=== PATIENT | male | born 1950 | race Two or more races ===

== ENCOUNTER 2025-02-28 19:27 | Inpatient (IN) | payer MEDICARE, OTHER ==
[~2025-02-28] VITALS: Ht 175.3 cm; Wt 95.7 kg
[2025-02-28] MEDS: IV NS 0.9% 1,000 ML BAG IV ONE (19:59)
[2025-02-28] MEDS ORDERED: PIPERACI/TAZO 3.375GM/D5W 50ML PB IV ONE (20:01)
[2025-02-28] MEDS ORDERED: ACETAMINOPHEN 650 MG/SUPP.RECT RC ONE (20:02)
[2025-02-28] MEDS: PIPERACILLIN /TAZOBACTAM 3.375 G in IV D5W 50 ML IV ONE (20:17)
[2025-02-28] MEDS: ACETAMINOPHEN 650 MG/SUPP.RECT RC ONE (20:17)
[2025-02-28 20:33] LABS: PLATELET COUNT (AUTO) 202 K/uL (150-450); RED BLOOD CELL COUNT(AUTO) 3.10 MIL/uL (4.5-6.0); RED CELL DISTRIBUTION WIDTH 17.1 % (11.5-15.0); WHITE BLOOD COUNT (AUTO) 8.2 K/uL (4.3-11.0)
[2025-02-28 20:41] LABS: ACETONE, SERUM NEGATIVE (NEGATIVE)
[2025-02-28 20:49] LABS: APPEARANCE,URINE CLOUDY (CLEAR); BLOOD, URINE 3+ Ery/uL (NEGATIVE); LEUKOCYTE ESTERASE ,URINE 2+ (NEGATIVE); NITRITE, URINE NEGATIVE (NEGATIVE); UGLUCOSE 3+ mg/dL (NEGATIVE)
[2025-02-28 20:50] LABS: INR 1.14 (0.91-1.10)
[2025-02-28 20:59] LABS: LACTIC ACID 1.9 mmol/L (0.4-2.0)
[2025-02-28 21:02] LABS: NT-PRO BNP 2512 pg/mL (0-125)
[2025-02-28 21:25] LABS: ADD URINE CULTURE YES; SQUAMOUS EPITHELIAL CELL,UR 0-2 /HPF (None Seen)
[2025-02-28 21:41] LABS: CALCIUM, SERUM 9.6 mg/dL (8.5-10.1); SODIUM SERUM 138 mmol/L (136-145)
[2025-02-28 21:42] LABS: CREATININE 7.1 mg/dL (0.6-1.3); UREA NITROGEN, BLOOD 153 mg/dL (7-18)
[2025-02-28 21:46] LABS: ASPARTATE AMINOTRANSFERASE 6 U/L (15-37); TOTAL PROTEIN, SERUM 7.0 g/dL (6.4-8.2)
[2025-02-28] MEDS ORDERED: INSULIN REGULAR, HUMAN 100 UNIT/ML 10 ML VIAL ONE (21:55)
[2025-02-28] MEDS: INSULIN REGULAR, HUMAN 100 UNITS in IV NS 0.9% 100 ML IV PRN (22:05)
[2025-02-28 22:10] LABS: ABG BASE EXCESS -17.6 mmol/L (-2.0-3.0); ABG OXYGEN SATURATION 96.1 % (94.0-98.0); ABG PCO2 18.9 mmHg (35.0-48.0); ABG PH 7.239 (7.350-7.450); ABG PO2 101.2 mmHg (83.0-108.0); ABG TOTAL HEMOGLOBIN 10.3 G/dL (13.5-17.5); FRACTIONATED INSPIRED OXYGEN 21.0 %
[2025-02-28] MEDS ORDERED: MAGNESIUM HYDROXIDE 30 ML UDC PO PRN (22:30)
[2025-02-28] MEDS ORDERED: DOSING PER PHARMACY-ZOSYN IV 1 EA EA XX PRN (22:30)
[2025-02-28] MEDS ORDERED: MAG HYDROX/AL HYDROX/SIMETH 30 ML UDC PO PRN (22:30)
[2025-02-28] MEDS ORDERED: ONDANSETRON HCL/PF 4 MG/2 ML VIAL IVP PRN (22:30)
[2025-02-28] MEDS ORDERED: DOCU100T2 PO (22:41)
[2025-02-28] MEDS ORDERED: NA P133E RC (22:41)
[2025-02-28] MEDS ORDERED: CHOL100040 PO (22:41)
[2025-02-28] MEDS ORDERED: EPOE4000 SQ (22:41)
[2025-02-28] MEDS ORDERED: ACET-2605 PO (22:41)
[2025-02-28] MEDS ORDERED: FERR325T24 PO (22:41)
[2025-02-28] MEDS ORDERED: MAGN400O21 PO (22:41)
[2025-02-28] MEDS ORDERED: SODI650T PO (22:41)
[2025-02-28] MEDS ORDERED: OFLO5DRO5 LEFT EAR (22:41)
[2025-02-28] MEDS ORDERED: CRAN200C PO (22:41)
[2025-02-28] MEDS ORDERED: PANT40TA49 PO (22:41)
[2025-02-28 22:53] LABS: BAND % (MANUAL) 2 % (0.0-5.0); LYMPHOCYTES % (MANUAL) 1 % (16-48); MONOCYTES % (MANUAL) 2 % (0-11.0); NEUTROPHILS % (MANUAL) 95 (42-76); PLATELET ESTIMATE ADEQUATE
[2025-02-28] MEDS ORDERED: INSULIN REGULAR, HUMAN 100 UNIT in IV NS 0.9% 99 ML IV PRN (23:00)
[2025-02-28] MEDS ORDERED: PANTOPRAZOLE 40 MG VIAL ONE (23:29)
[2025-02-28] MEDS: PANTOPRAZOLE 40 MG VIAL IV SCH (23:29)
[2025-03-01] VITALS (24 sets, daily range): BP systolic 77–164; BP diastolic 44–126; TEMP 98.4–99.5; O2SAT 96–99
[2025-03-01] MEDS: INSULIN REGULAR, HUMAN 100 UNIT in IV NS 0.9% 99 ML IV PRN (01:20)
[2025-03-01] MEDS: IV NS 0.9% 1,000 ML IV PRN (01:20)
[2025-03-01] MEDS: BLOOD SUGAR DIAGNOSTIC 1 EACH STRIP IN SCH (01:27)
[2025-03-01 01:42] LABS: CALCIUM, SERUM 10.1 mg/dL (8.5-10.1); CREATININE 7.4 mg/dL (0.6-1.3); SODIUM SERUM 140 mmol/L (136-145)
[2025-03-01 01:58] LABS: UREA NITROGEN, BLOOD > 150 mg/dL (7-18)
[2025-03-01 05:16] LABS: PLATELET COUNT (AUTO) 201 K/uL (150-450); RED BLOOD CELL COUNT(AUTO) 3.12 MIL/uL (4.5-6.0); RED CELL DISTRIBUTION WIDTH 17.0 % (11.5-15.0); WHITE BLOOD COUNT (AUTO) 9.6 K/uL (4.3-11.0)
[2025-03-01 05:31] LABS: CALCIUM, SERUM 10.3 mg/dL (8.5-10.1); CREATININE 7.4 mg/dL (0.6-1.3); SODIUM SERUM 144 mmol/L (136-145)
[2025-03-01 05:34] LABS: LDL 27 mg/dL (0-99)
[2025-03-01 06:00] LABS: PHOSPHORUS 8.2 mg/dL (2.5-4.9); UREA NITROGEN, BLOOD > 150 mg/dL (7-18)
[2025-03-01] MEDS: PIPERACILLIN /TAZOBACTAM 2.25 G in IV D5W 50 ML IV SCH (07:40)
[2025-03-01] MEDS ORDERED: ACET325T53 PO (07:40)
[2025-03-01] MEDS ORDERED: CHOL100043 PO (07:40)
[2025-03-01 09:11] LABS: CALCIUM, SERUM 10.3 mg/dL (8.5-10.1); CREATININE 7.4 mg/dL (0.6-1.3); SODIUM SERUM 145.0 mmol/L (136-145)
[2025-03-01 09:32] LABS: UREA NITROGEN, BLOOD 162.0 mg/dL (7-18)
[2025-03-01] MEDS ORDERED: NA PHOS,M-B/NA PHOS,DI-BA 1 EA ENEMA RC PRN (10:30)
[2025-03-01] MEDS: IV D5/0.45 NACL 1,000 ML IV ONE (12:07)
[2025-03-01 13:29] LABS: CALCIUM, SERUM 10.1 mg/dL (8.5-10.1); SODIUM SERUM 143 mmol/L (136-145)
[2025-03-01 14:03] LABS: CREATININE 7.5 mg/dL (0.6-1.3)
[2025-03-01 14:06] LABS: UREA NITROGEN, BLOOD 135 mg/dL (7-18)
[2025-03-01] MEDS: OFLOXACIN OTIC SOLN 5 ML BOTTLE LEFT EAR SCH (17:13)
[2025-03-01 17:49] LABS: CALCIUM, SERUM 10.6 mg/dL (8.5-10.1); SODIUM SERUM 147 mmol/L (136-145)
[2025-03-01 17:52] LABS: CREATININE 7.8 mg/dL (0.6-1.3); UREA NITROGEN, BLOOD 163 mg/dL (7-18)
[2025-03-01] MEDS: IV LR 1000 ML 1,000 ML IV ONE (18:27)
[2025-03-01] MEDS: IV LR 1000 ML 1,000 ML IV SCH (19:33)
[2025-03-01 21:56] LABS: CALCIUM, SERUM 9.0 mg/dL (8.5-10.1); CREATININE 3.4 mg/dL (0.6-1.3); SODIUM SERUM 145.0 mmol/L (136-145); UREA NITROGEN, BLOOD 67.0 mg/dL (7-18)
[2025-03-01] MEDS ORDERED: DOSING PER PHARMACY-VANCOMYCIN IV XX PRN (23:00)
[2025-03-01] MEDS: VANCOMYCIN 1 GM /D5W 250 ML PB IV ONE (23:33)
[2025-03-01] MEDS: VANCOMYCIN 1 GM in IV D5W 250ml IV ONE (23:41)
[2025-03-02] VITALS (39 sets, daily range): BP systolic 75–131; BP diastolic 44–86; TEMP 97.9–98.1; O2SAT 92–99
[2025-03-02] MEDS ORDERED: CEFEPIME 1 GM VIAL ONE (00:09)
[2025-03-02] MEDS: CEFEPIME 1 GM in IV D5W 50 ML IV SCH ×2 (00:22→23:02)
[2025-03-02 04:47] LABS: PLATELET COUNT (AUTO) 133 K/uL (150-450); RED BLOOD CELL COUNT(AUTO) 2.51 MIL/uL (4.5-6.0); RED CELL DISTRIBUTION WIDTH 16.6 % (11.5-15.0); WHITE BLOOD COUNT (AUTO) 6.1 K/uL (4.3-11.0)
[2025-03-02 05:02] LABS: ASPARTATE AMINOTRANSFERASE 18.0 U/L (15-37); CALCIUM, SERUM 9.2 mg/dL (8.5-10.1); CREATININE 4.7 mg/dL (0.6-1.3); PHOSPHORUS 6.1 mg/dL (2.5-4.9); SODIUM SERUM 144.0 mmol/L (136-145); TOTAL PROTEIN, SERUM 5.9 g/dL (6.4-8.2)
[2025-03-02 05:13] LABS: CREATINE KINASE, TOTAL 332.0 U/L (39-308)
[2025-03-02 05:17] LABS: UREA NITROGEN, BLOOD 87.0 mg/dL (7-18)
[2025-03-02 07:26] LABS: CALCIUM, SERUM 9.0 mg/dL (8.5-10.1); SODIUM SERUM 143.0 mmol/L (136-145)
[2025-03-02 07:41] LABS: CREATININE 4.7 mg/dL (0.6-1.3)
[2025-03-02 07:46] LABS: UREA NITROGEN, BLOOD 89.0 mg/dL (7-18)
[2025-03-02 08:07] LABS: COMPLEMENT C3, SERUM 134 mg/dL (82-167); COMPLEMENT C4, SERUM 31 mg/dL (12-38)
[2025-03-02] MEDS: IV LR 1000 ML 1,000 ML IV PRN (08:27)
[2025-03-02] MEDS: POTASSIUM CL. PREMIX PERIPHER. 50 ML IV SCH (12:26)
[2025-03-02] MEDS ORDERED: DEXTROSE 50%-WATER 50 ML DISP.SYRIN IV PRN (12:30)
[2025-03-02] MEDS: BLOOD SUGAR DIAGNOSTIC 1 EACH STRIP IN SCH (13:15)
[2025-03-02] MEDS: INSULIN REGULAR, HUMAN 100 UNIT/ML 3 ML VIAL SQ PRN (13:18)
[2025-03-02] MEDS: ALBUMIN 25% 25 GM in PREMIX 1 EA IV PRN (15:50)
[2025-03-02] MEDS ORDERED: VANCOMYCIN 1 GM /D5W 250 ML PB IV ONE (20:29)
[2025-03-02] MEDS: VANCOMYCIN POST DIALYSIS 500MG IV PRN (20:33)
[2025-03-03] VITALS (25 sets, daily range): BP systolic 91–145; BP diastolic 43–69; TEMP 97.3–101.8; O2SAT 93–98
[2025-03-03 04:56] LABS: CALCIUM, SERUM 8.9 mg/dL (8.5-10.1); CREATININE 4.2 mg/dL (0.6-1.3); SODIUM SERUM 140.0 mmol/L (136-145); UREA NITROGEN, BLOOD 75.0 mg/dL (7-18)
[2025-03-03 05:02] LABS: PHOSPHORUS 4.8 mg/dL (2.5-4.9)
[2025-03-03] MEDS: ACETAMINOPHEN 325 MG TABLET PO PRN (05:09)
[2025-03-03 07:16] LABS: PLATELET COUNT (AUTO) 93 K/uL (150-450); RED BLOOD CELL COUNT(AUTO) 2.08 MIL/uL (4.5-6.0); RED CELL DISTRIBUTION WIDTH 16.5 % (11.5-15.0); WHITE BLOOD COUNT (AUTO) 5.3 K/uL (4.3-11.0)
[2025-03-03 07:40] LABS: EOSINOPHILS % (MANUAL) 1 % (0-4); LYMPHOCYTES % (MANUAL) 6 % (16-48); MONOCYTES % (MANUAL) 1 % (0-11.0); NEUTROPHILS % (MANUAL) 92 (42-76); PLATELET ESTIMATE DECREASED
[2025-03-03] MEDS: THERAHONEY GEL 1.5 OZ TUBE TP SCH (08:59)
[2025-03-03 09:09] LABS: *ANA ANTI-CENTROMERE B AB <0.2 AI (0.0-0.9); *ANA ANTI-DNA(DS) AB, QN <1 IU/mL (0-9); *ANA ANTI-JO-1 <0.2 AI (0.0-0.9); *ANA ANTICHROMATIN ANTIBODY <0.2 AI (0.0-0.9); *ANA RNP ANTIBODIES <0.2 AI (0.0-0.9); *ANA SJOGREN'S ANTI-SS-A <0.2 AI (0.0-0.9); *ANA SJOGREN'S ANTI-SS-B <0.2 AI (0.0-0.9); *ANAANTI-SCLERODERMA-70 AB <0.2 AI (0.0-0.9); *ANASMITH AB <0.2 AI (0.0-0.9)
[2025-03-03] MEDS: INSULIN GLARGINE, 100 UNIT/ML CARTRIDGE SQ SCH (14:14)
[2025-03-03] MEDS: ALTEPLASE CATHFLO 2 MG/VIAL XX ONE (16:34)
[2025-03-04] VITALS (7 sets, daily range): BP systolic 117–141; BP diastolic 44–82; TEMP 97.5–98.8; O2SAT 95–100
[2025-03-04 03:11] LABS: HEPATITIS B SURFACE AB (QUAL) Non Reactive (.)
[2025-03-04 06:10] LABS: PTH, INTACT 198 pg/mL (15-65)
[2025-03-04 06:15] LABS: PLATELET COUNT (AUTO) 90 K/uL (150-450); RED BLOOD CELL COUNT(AUTO) 2.53 MIL/uL (4.5-6.0); RED CELL DISTRIBUTION WIDTH 16.0 % (11.5-15.0); WHITE BLOOD COUNT (AUTO) 6.3 K/uL (4.3-11.0)
[2025-03-04 07:12] LABS: ASPARTATE AMINOTRANSFERASE 23.0 U/L (15-37); CALCIUM, SERUM 8.9 mg/dL (8.5-10.1); CREATININE 3.3 mg/dL (0.6-1.3); PHOSPHORUS 3.8 mg/dL (2.5-4.9); SODIUM SERUM 142.0 mmol/L (136-145); TOTAL PROTEIN, SERUM 5.7 g/dL (6.4-8.2); UREA NITROGEN, BLOOD 45.0 mg/dL (7-18)
[2025-03-04 07:16] LABS: BASOPHILS % (MANUAL) 0 % (0.0-2.0); EOSINOPHILS % (MANUAL) 0 % (0-4); LYMPHOCYTES % (MANUAL) 5 % (16-48); MONOCYTES % (MANUAL) 2 % (0-11.0); NEUTROPHILS % (MANUAL) 93 (42-76); PLATELET ESTIMATE DECREASED
[2025-03-04] MEDS: Z GUARD REMEDY 4 OZ OINT TP PRN (08:42)
[2025-03-04] MEDS ORDERED: DEXTROSE 50%-WATER 50 ML DISP.SYRIN IV PRN (17:30)
[2025-03-04] MEDS ORDERED: INSULIN REGULAR, HUMAN 100 UNIT/ML 3 ML VIAL SQ PRN (17:30)
[2025-03-04] MEDS: CEFTRIAXONE 1 G in IV D5W 50 ML IV SCH (20:34)
[2025-03-04] MEDS: BLOOD SUGAR DIAGNOSTIC 1 EACH STRIP IN SCH (21:11)
[2025-03-05] VITALS: BP 132/53; TEMP 98.1; O2SAT 97
[2025-03-05 03:08] LABS: HEPATITIS A AB, IgM Negative (Negative); HEPATITIS A AB, TOTAL Positive (Negative)
[2025-03-05 04:00] VITALS: BP 118/57; TEMP 98.6; O2SAT 97
[2025-03-05 06:48] LABS: PLATELET COUNT (AUTO) 79 K/uL (150-450); RED BLOOD CELL COUNT(AUTO) 2.47 MIL/uL (4.5-6.0); RED CELL DISTRIBUTION WIDTH 16.3 % (11.5-15.0); WHITE BLOOD COUNT (AUTO) 4.6 K/uL (4.3-11.0)
[2025-03-05 07:00] LABS: CALCIUM, SERUM 8.7 mg/dL (8.5-10.1); CREATININE 4.2 mg/dL (0.6-1.3); PHOSPHORUS 4.6 mg/dL (2.5-4.9); UREA NITROGEN, BLOOD 53.0 mg/dL (7-18)
[2025-03-05 07:08] LABS: SODIUM SERUM 135.0 mmol/L (136-145)
[2025-03-05 08:00] VITALS: BP 134/62; TEMP 98.8; O2SAT 96
[2025-03-05] MEDS: PANTOPRAZOLE 40 MG/PACK PACK PO SCH (09:18)
[2025-03-05] MEDS ORDERED: CT SWABBABLE VALVE TRANS SET 1 EA INFUS.SET MC ONE (10:58)
[2025-03-05] MEDS ORDERED: IV NS 0.9% 250 ML IV ONE (10:58)
[2025-03-05] MEDS ORDERED: IOHEXOL-300 100 ML VIAL IV ONE (10:58)
[2025-03-05 12:00] VITALS: BP 138/66; TEMP 98.1; O2SAT 97
[2025-03-05 12:24] LABS: EOSINOPHILS % (MANUAL) 1 % (0-4); LYMPHOCYTES % (MANUAL) 4 % (16-48); NEUTROPHILS % (MANUAL) 95 (42-76); PLATELET ESTIMATE DECREASED
[2025-03-05] MEDS: INSULIN GLARGINE, 100 UNIT/ML CARTRIDGE SQ SCH (13:20)
[2025-03-05] MEDS: ALTEPLASE CATHFLO 2 MG/VIAL XX ONE (13:22)
[2025-03-05 16:00] VITALS: BP 145/65; TEMP 98.5; O2SAT 96
[2025-03-05 20:00] VITALS: BP 141/63; TEMP 98.8; O2SAT 95
[2025-03-06] VITALS: BP 140/58; TEMP 98.6; O2SAT 96
[2025-03-06 04:00] VITALS: BP 145/57; TEMP 97.9; O2SAT 97
[2025-03-06 06:29] LABS: PLATELET COUNT (AUTO) 90 K/uL (150-450); RED BLOOD CELL COUNT(AUTO) 2.45 MIL/uL (4.5-6.0); RED CELL DISTRIBUTION WIDTH 15.5 % (11.5-15.0); WHITE BLOOD COUNT (AUTO) 4.7 K/uL (4.3-11.0)
[2025-03-06 06:31] LABS: CALCIUM, SERUM 8.1 mg/dL (8.5-10.1); CREATININE 4.4 mg/dL (0.6-1.3); SODIUM SERUM 136.0 mmol/L (136-145); UREA NITROGEN, BLOOD 59.0 mg/dL (7-18)
[2025-03-06] MEDS: POTASSIUM CL. PREMIX PERIPHER. 50 ML IV SCH (07:49)
[2025-03-06 08:00] VITALS: BP 129/57; TEMP 98.3; O2SAT 95
[2025-03-06 10:39] LABS: BAND % (MANUAL) 2 % (0.0-5.0); EOSINOPHILS % (MANUAL) 1 % (0-4); LYMPHOCYTES % (MANUAL) 1 % (16-48); MONOCYTES % (MANUAL) 3 % (0-11.0); MYELOCYTES % 1 % (0-0); NEUTROPHILS % (MANUAL) 92 (42-76)
[2025-03-06 10:43] LABS: PLATELET ESTIMATE DECREASED
[2025-03-06 12:00] VITALS: BP 146/58; TEMP 98.1; O2SAT 96
[2025-03-06 16:00] VITALS: BP 135/57; TEMP 98.6; O2SAT 95
[2025-03-06] MEDS: NEPRO VAN 237 ML CAN PO SCH (17:24)
[2025-03-06 20:00] VITALS: BP 128/69; TEMP 97.9; O2SAT 97
[2025-03-07] VITALS: BP 142/58; TEMP 99; O2SAT 97
[2025-03-07 04:00] VITALS: BP 137/53; TEMP 97.9; O2SAT 97
[2025-03-07 06:43] LABS: PLATELET COUNT (AUTO) 107 K/uL (150-450); RED BLOOD CELL COUNT(AUTO) 2.42 MIL/uL (4.5-6.0); RED CELL DISTRIBUTION WIDTH 15.7 % (11.5-15.0); WHITE BLOOD COUNT (AUTO) 4.7 K/uL (4.3-11.0)
[2025-03-07 07:10] LABS: CALCIUM, SERUM 8.0 mg/dL (8.5-10.1); CREATININE 4.2 mg/dL (0.6-1.3); SODIUM SERUM 129.0 mmol/L (136-145); UREA NITROGEN, BLOOD 58.0 mg/dL (7-18)
[2025-03-07 08:00] VITALS: BP 143/61; TEMP 97.9; O2SAT 96
[2025-03-07 12:00] VITALS: BP 125/58; TEMP 98; O2SAT 95
[2025-03-07 16:06] VITALS: BP 139/64; TEMP 98.4; O2SAT 98
[2025-03-07] MEDS ORDERED: ALTEPLASE CATHFLO 2 MG/VIAL XX PRN (17:00)
[2025-03-07 17:11] LABS: INR 1.09 (0.91-1.10)
[2025-03-07] MEDS: ALTEPLASE CATHFLO 2 MG/VIAL XX ONE (17:22)
[2025-03-07 20:00] VITALS: BP 99/53; TEMP 98.2; O2SAT 97
[2025-03-08] VITALS: BP 116/68; TEMP 99.3; O2SAT 96
[2025-03-08 04:00] VITALS: BP 121/49; TEMP 99.7; O2SAT 96
[2025-03-08 06:09] LABS: PLATELET COUNT (AUTO) 106 K/uL (150-450); RED BLOOD CELL COUNT(AUTO) 2.35 MIL/uL (4.5-6.0); RED CELL DISTRIBUTION WIDTH 15.7 % (11.5-15.0); WHITE BLOOD COUNT (AUTO) 4.7 K/uL (4.3-11.0)
[2025-03-08 06:44] LABS: ASPARTATE AMINOTRANSFERASE 16.0 U/L (15-37); CALCIUM, SERUM 8.7 mg/dL (8.5-10.1); CREATININE 4.2 mg/dL (0.6-1.3); PHOSPHORUS 4.8 mg/dL (2.5-4.9); SODIUM SERUM 134.0 mmol/L (136-145); TOTAL PROTEIN, SERUM 5.6 g/dL (6.4-8.2); UREA NITROGEN, BLOOD 53.0 mg/dL (7-18)
[2025-03-08 08:00] VITALS: BP 118/56; TEMP 98.6; O2SAT 96
[2025-03-08 12:00] VITALS: BP 116/53; TEMP 98.1; O2SAT 100
[2025-03-08 16:00] VITALS: BP 151/66; TEMP 98.1; O2SAT 97
[2025-03-08 20:00] VITALS: BP 143/64; TEMP 99; O2SAT 99
[2025-03-08] MEDS: INSULIN GLARGINE, 100 UNIT/ML CARTRIDGE SQ SCH (21:31)
[2025-03-09] VITALS: BP 123/60; TEMP 99.4; O2SAT 97
[2025-03-09 04:00] VITALS: BP 140/57; TEMP 98.1; O2SAT 97
[2025-03-09 06:24] LABS: PLATELET COUNT (AUTO) 140 K/uL (150-450); RED BLOOD CELL COUNT(AUTO) 2.45 MIL/uL (4.5-6.0); RED CELL DISTRIBUTION WIDTH 15.4 % (11.5-15.0); WHITE BLOOD COUNT (AUTO) 5.6 K/uL (4.3-11.0)
[2025-03-09 06:35] LABS: ASPARTATE AMINOTRANSFERASE 11.0 U/L (15-37); CALCIUM, SERUM 9.1 mg/dL (8.5-10.1); CREATININE 4.2 mg/dL (0.6-1.3); PHOSPHORUS 4.9 mg/dL (2.5-4.9); SODIUM SERUM 137.0 mmol/L (136-145); TOTAL PROTEIN, SERUM 6.0 g/dL (6.4-8.2); UREA NITROGEN, BLOOD 53.0 mg/dL (7-18)
[2025-03-09 06:36] LABS: INR 1.08 (0.91-1.10)
[2025-03-09 08:00] VITALS: BP_SYST 137; BP_SYST 140; BP_DIAS 57; BP_DIAS 58; TEMP 98.1; TEMP 98.6; O2SAT 100; O2SAT 97
[2025-03-09] MEDS ORDERED: MIDAZOLAM HCL 2 MG/2ML VIAL IV PRN (13:30)
[2025-03-09] MEDS ORDERED: FLUMAZENIL 0.5 MG VIAL IV PRN (13:30)
[2025-03-09] MEDS ORDERED: NALOXONE PREFILLED SYRINGE 2 MG/2 ML SYRINGE IV PRN (13:30)
[2025-03-09] MEDS ORDERED: FENTANYL PF 250MCG/5ML AMPUL IV PRN (13:30)
[2025-03-09] MEDS ORDERED: FENTANYL PF 100MCG/2ML AMPUL IV PRN (14:00)
[2025-03-09 16:00] VITALS: BP 111/69; TEMP 98.6; O2SAT 99
[2025-03-09 20:00] VITALS: BP 129/63; TEMP 98.4; O2SAT 98
[2025-03-09 20:44] LABS: TOTAL VOLUME,BODY FLUID 22 mL
[2025-03-09 20:49] LABS: WBC, BODY FLUID 357180 /cu. mm. (0-200)
[2025-03-09 21:08] LABS: MACROPHAGES, BODY FLUID 2
[2025-03-09 21:21] LABS: APPEARANCE,SPUN,BODY FLUID CLOUDY (CLEAR)
[2025-03-10 04:00] VITALS: BP 151/61; TEMP 98.5; O2SAT 97
[2025-03-10 06:27] LABS: PLATELET COUNT (AUTO) 148 K/uL (150-450); RED BLOOD CELL COUNT(AUTO) 2.42 MIL/uL (4.5-6.0); RED CELL DISTRIBUTION WIDTH 15.7 % (11.5-15.0); WHITE BLOOD COUNT (AUTO) 4.8 K/uL (4.3-11.0)
[2025-03-10 06:28] LABS: CALCIUM, SERUM 8.9 mg/dL (8.5-10.1); CREATININE 4.1 mg/dL (0.6-1.3); SODIUM SERUM 134.0 mmol/L (136-145); UREA NITROGEN, BLOOD 51.0 mg/dL (7-18)
[2025-03-10 08:00] VITALS: BP 139/64; TEMP 98.4; O2SAT 97
[2025-03-10 12:00] VITALS: BP 124/78; TEMP 98.5; O2SAT 97
[2025-03-10] MEDS ORDERED: HEPARIN SODIUM, PORCINE 1,000 UNIT/ML VIAL ONE (13:04)
[2025-03-10] MEDS ORDERED: LIDOCAINE 1% INJ 50 ML MDV IJ ONE (13:04)
[2025-03-10] MEDS ORDERED: IOHEXOL 0 ML IV ONE (13:04)
[2025-03-10 20:00] VITALS: BP 129/59; TEMP 98.5; O2SAT 99
[2025-03-11 04:00] VITALS: BP 130/60; TEMP 98.5; O2SAT 99
[2025-03-11 06:39] LABS: PLATELET COUNT (AUTO) 159 K/uL (150-450); RED BLOOD CELL COUNT(AUTO) 2.22 MIL/uL (4.5-6.0); RED CELL DISTRIBUTION WIDTH 15.6 % (11.5-15.0); WHITE BLOOD COUNT (AUTO) 4.5 K/uL (4.3-11.0)
[2025-03-11 06:45] LABS: CALCIUM, SERUM 8.6 mg/dL (8.5-10.1); CREATININE 4.0 mg/dL (0.6-1.3); SODIUM SERUM 131.0 mmol/L (136-145); UREA NITROGEN, BLOOD 49.0 mg/dL (7-18)
[2025-03-11 08:00] VITALS: BP 132/73; TEMP 98.3; O2SAT 96
[2025-03-11] MEDS: APIXABAN 2.5 MG TABLET PO SCH (09:08)
[2025-03-11] MEDS ORDERED: EPOETIN ALFA (10,000 UNIT) 10,000 UNIT/ML VIAL SQ SCH (10:00)
[2025-03-11 12:00] VITALS: BP 132/73; TEMP 98.3; O2SAT 96
[2025-03-11] MEDS: EPOETIN ALFA (10,000 UNIT) 10,000 UNIT/ML VIAL SQ SCH (15:14)
[2025-03-11 16:00] VITALS: BP 148/68; TEMP 98.1; O2SAT 97
[2025-03-11 20:00] VITALS: BP 99/53; TEMP 97.9; O2SAT 99
[2025-03-11 20:20] VITALS: BP 99/53; TEMP 97.9
[2025-03-12 07:07] LABS: *SPE A/G RATIO 0.6 (0.7-1.7); *SPE ALBUMIN 1.8 g/dL (2.9-4.4); *SPE ALPHA-1-GLOBULIN 0.4 g/dL (0.0-0.4); *SPE ALPHA-2-GLOBULIN 0.9 g/dL (0.4-1.0); *SPE BETA GLOBULIN 0.8 g/dL (0.7-1.3); *SPE GLOBULIN, TOTAL 3.1 g/dL (2.2-3.9); *SPE M-SPIKE Not Observed g/dL (Not Observed); *SPE PROTEIN TOTAL 4.9 g/dL (6.0-8.5); *SPEGAMMA GLOBULIN 0.9 g/dL (0.4-1.8)
== END 2025-03-12 03:12 | DRG 871 ==
LOC: ER 19:31 → TELE 22:34 → ICU 22:49 → TELE1 03-03 18:04 → MEDSG1 03-09 09:53
PROVIDERS: ADMIT Nurse Practitioner Acute Care; ATTEND Internal Medicine
PROC: 5A1D70Z Performance of Urinary Filtration, Intermittent, Less than 6 Hours Per Day (ICD-10-PCS; 2025-03-01)
PROC: 05HM33Z Insertion of Infusion Device into Right Internal Jugular Vein, Percutaneous Approach (ICD-10-PCS; 2025-03-01)
PROC: 30233N1 Transfusion of Nonautologous Red Blood Cells into Peripheral Vein, Percutaneous Approach (ICD-10-PCS; 2025-03-03)
PROC: 0K9P30Z Drainage of Left Hip Muscle with Drainage Device, Percutaneous Approach (ICD-10-PCS; 2025-03-09)
PROC: 02HV33Z Insertion of Infusion Device into Superior Vena Cava, Percutaneous Approach (ICD-10-PCS; 2025-03-10)
PROC: B518YZA Fluoroscopy of Superior Vena Cava using Other Contrast, Guidance (ICD-10-PCS; 2025-03-10)
PROC: 0JH63XZ Insertion of Tunneled Vascular Access Device into Chest Subcutaneous Tissue and Fascia, Percutaneous Approach (ICD-10-PCS; principal; 2025-03-10 14:00)
DX: A41.01 Sepsis due to Methicillin susceptible Staphylococcus aureus (principal); E11.10 Type 2 diabetes mellitus with ketoacidosis without coma; L89.153 Pressure ulcer of sacral region, stage 3; L89.323 Pressure ulcer of left buttock, stage 3; L89.313 Pressure ulcer of right buttock, stage 3; E43 Unspecified severe protein-calorie malnutrition; G92.8 Other toxic encephalopathy; K68.12 Psoas muscle abscess; N17.9 Acute kidney failure, unspecified; E87.1 Hypo-osmolality and hyponatremia; N39.0 Urinary tract infection, site not specified; D53.9 Nutritional anemia, unspecified; E11.22 Type 2 diabetes mellitus with diabetic chronic kidney disease; E86.0 Dehydration; E87.5 Hyperkalemia; I12.9 Hypertensive chronic kidney disease with stage 1 through stage 4 chronic kidney disease, or unspecified chronic kidney disease; N18.9 Chronic kidney disease, unspecified; E83.39 Other disorders of phosphorus metabolism; I48.91 Unspecified atrial fibrillation; K40.90 Unilateral inguinal hernia, without obstruction or gangrene, not specified as recurrent; M19.90 Unspecified osteoarthritis, unspecified site; Z79.4 Long term (current) use of insulin; Z74.01 Bed confinement status; F03.90 Unspecified dementia, unspecified severity, without behavioral disturbance, psychotic disturbance, mood disturbance, and anxiety; Z20.822 Contact with and (suspected) exposure to COVID-19; E83.89 Other disorders of mineral metabolism; L89.526 Pressure-induced deep tissue damage of left ankle; L89.896 Pressure-induced deep tissue damage of other site; L98.8 Other specified disorders of the skin and subcutaneous tissue; Z68.31 Body mass index [BMI] 31.0-31.9, adult
CPT/HCPCS: 36415; 36600; 70450-TC; 71045-TC; 75989; 75989-TC; 76770-TC; 80048-TC; 80053-TC; 80061-TC; 80076-TC; 80202-TC; 81001; 82010-TC; 82550-TC; 82553; 82803-TC; 82962-TC; 83605-TC; 83735-TC; 83880; 83970; 84100-TC; 84155; 84165; 84443-TC; 84484-TC; 85025-TC; 85027-TC; 85610-TC; 85652-TC; 85730-TC; 86225; 86235; 86706; 86709; 86709-TC; 86803; 86850-TC; 87040-TC; 87070-TC; 87075-TC; 87081-TC; 87086-TC; 87186-TC; 87340; 89051-TC; 90935-TC; 92526; 92611; 93307-TC; A4216; A4223; A4649; A6213; A6403; C1750; C1752; C1769; G0378; J0692; J0696; J0885; J1644; J1815; J2470; J2543; J2704; J2997; J3373; J3480; J3490; J7030; J7040; J7050; J7060; J7120; P9016; P9047; Q9967